=== PATIENT | female | born 1995 | race Caucasian/White ===

== ENCOUNTER 2017-07-28 21:35 | Emergency (ER) | payer SELFPAY ==
[2017-07-28 21:44] VITALS: BP 140/91; PULSE 103; TEMP 9802; BMI 32.3
--- NOTE | 2017-07-28 21:47 | PDOC ---
Rapid Medical Evaluation Chief Complaint: Sore Throat Time Seen by Provider: 07/28/17 21:42 Medical Evaluation: Allergies Allergy/AdvReac Type Severity Reaction Status Date / Time Penicillins Allergy headaches Verified 11/17/15 03:58 swelling sensation Pt presents with complaint of : recently on treatment for strep s/p azithromycin ,. c/o sore throat, muffled voice and difficulty breathing when asleep On brief exam: + cervical lymphadenopathy. b/l tonsil swollen. not kissing. I have ordered the following: rapid strep. Pt will go to the Emergency Dept for further workup 07/28/17 21:43
[2017-07-28] MEDS ORDERED: CLINDAMYCIN HCL 150 MG CAPSULE (FP) PO ONE (22:44)
[2017-07-28] MEDS ORDERED: DEXAMETHASONE SOD PHOSPHATE 10 MG/1 ML VIAL IM ONE ×2 (22:44→23:06)
[2017-07-28] MEDS ORDERED: CLINDAMYCIN HCL 150 MG CAPSULE (FP) ONE (22:53)
[2017-07-28] MEDS ORDERED: DEXAMETHASONE SOD PHOSPHATE 10 MG/1 ML VIAL ONE ×2 (22:53→23:09)
--- NOTE | 2017-07-28 22:56 | PDOC ---
History of Present Illness - General Chief Complaint: Sore Throat Stated Complaint: SORE THROAT Time Seen by Provider: 07/28/17 21:42 History Source: Patient - History of Present Illness Initial Comments: 07/28/17 22:46 22 year old female c/o sore throat s/p azithromycin for strep throat. symptoms not resolving with increased swelling to both tonsils. and muffled voice. Past History - Past Medical History Allergies/Adverse Reactions: Allergies Allergy/AdvReac Type Severity Reaction Status Date / Time Penicillins Allergy headaches Verified 11/17/15 03:58 swelling sensation Home Medications: Ambulatory Orders Metformin HCl [Glucophage] 500 mg PO BID 07/18/14 Clindamycin HCl [Cleocin HCl] 300 mg PO QID #28 capsule 11/17/15 Oxycodone HCl/Acetaminophen [Percocet 5/325 -] 1 - 2 tab PO Q6H PRN #20 tablet MDD 8 tabs 11/17/15 Clindamycin HCl [Cleocin HCl] 300 mg PO QID #40 capsule 07/28/17 Ibuprofen 800 mg PO QID PRN #20 tablet 07/28/17 COPD: No Hypercholesterolemia: Yes - Immunization History Td Vaccination: Yes TDAP Vaccination: Yes Immunization Up to Date: Yes - Suicide/Smoking/Psychosocial Hx Smoking Status: No Smoking History: Never smoked Have you smoked in the past 12 months: No Number of Cigarettes Smoked Daily: 0 Information on smoking cessation initiated: No Hx Alcohol Use: No Drug/Substance Use Hx: No Substance Use Type: None *Physical Exam - Vital Signs Last Vital Signs Temp Pulse Resp BP Pulse Ox 9802 F H 103 H 19 140/91 98 07/28/17 21:42 07/28/17 21:42 07/28/17 21:42 07/28/17 21:42 07/28/17 21:42 - Physical Exam General Appearance: Yes: Appropriately Dressed HEENT: positive: Other (tonsillar edema. No kissing tonsils. b/l tonsills swollen. ) Neck: positive: Lymphadenopathy (R), Lymphadenopathy (L) Respiratory/Chest: positive: Lungs Clear, Normal Breath Sounds Extremity: positive: Normal Capillary Refill, Normal Inspection, Normal Range of Motion Integumentary: positive: Normal Color, Dry, Warm Neurologic: positive: Fully Oriented, Alert, Normal Mood/Affect ED Treatment Course - ADDITIONAL ORDERS Additional order review: 07/28/17 22:00 Group A Strep Rapid Antigen - Final Throat *DC/Admit/Observation/Transfer Diagnosis at time of Disposition: Pharyngitis Qualifiers: Pharyngitis/tonsillitis etiology: other specified organisms Qualified Code(s): J02.8 - Acute pharyngitis due to other specified organisms - Prescriptions Prescriptions: Clindamycin HCl [Cleocin HCl] 300 mg PO QID #40 capsule Ibuprofen 800 mg PO QID PRN #20 tablet PRN Reason: Pain - Referrals Referrals: Patricio Jeffrey MD [Staff Physician] - - Patient Instructions Printed Discharge Instructions: DI for Pharyngitis/Tonsillopharyngitis -- Adult Additional Instructions: drink plenty of fluids. gargle with warm salty water. take ibuprofen for pain take clindamycin as prescribed. follow up with your doctor as soon as possible. - Post Discharge Activity Forms/Work/School Notes: Back to Work
--- NOTE | 2017-07-28 23:36 | PDOC ---
*Physical Exam - Vital Signs Last Vital Signs Temp Pulse Resp BP Pulse Ox 9802 F H 103 H 19 140/91 98 07/28/17 21:42 07/28/17 21:42 07/28/17 21:42 07/28/17 21:42 07/28/17 21:42 ED Treatment Course - ADDITIONAL ORDERS Additional order review: 07/28/17 22:00 Group A Strep Rapid Antigen - Final Throat - Medications Given in the ED: ED Medications Discontinued Medications Generic Name Dose Route Start Last Admin Trade Name Freq PRN Reason Stop Dose Admin Clindamycin HCl 450 mg 07/28/17 22:44 07/28/17 22:58 Cleocin - PO 07/28/17 22:45 450 mg ONCE ONE Administration Dexamethasone Sodium Phosphate 10 mg 07/28/17 22:44 07/28/17 22:58 Decadron Injection - IM 07/28/17 22:45 Not Given ONCE ONE Dexamethasone Sodium Phosphate 10 mg 07/28/17 23:06 07/28/17 23:13 Decadron Injection - IM 07/28/17 23:07 10 mg ONCE ONE Administration Medical Decision Making - Medical Decision Making 07/28/17 23:36 agree with care from WILBERT Middleton *DC/Admit/Observation/Transfer Diagnosis at time of Disposition: Pharyngitis Qualifiers: Pharyngitis/tonsillitis etiology: other specified organisms Qualified Code(s): J02.8 - Acute pharyngitis due to other specified organisms - Prescriptions Prescriptions: Clindamycin HCl [Cleocin HCl] 300 mg PO QID #40 capsule Ibuprofen 800 mg PO QID PRN #20 tablet PRN Reason: Pain - Referrals Referrals: Patricio Jeffrey MD [Staff Physician] - - Patient Instructions Printed Discharge Instructions: DI for Pharyngitis/Tonsillopharyngitis -- Adult Additional Instructions: drink plenty of fluids. gargle with warm salty water. take ibuprofen for pain take clindamycin as prescribed. follow up with your doctor as soon as possible. - Post Discharge Activity Forms/Work/School Notes: Back to Work
== END 2017-07-28 23:52 | disposition home or self-care (01) ==
LOC: JER 21:35
PROC: 3E023GC Introduction of Other Therapeutic Substance into Muscle, Percutaneous Approach (ICD-10-PCS; principal; 2017-07-28)
DX: J02.8 Acute pharyngitis due to other specified organisms (principal)
CPT/HCPCS: 87070; 87430; 99281-25

== ENCOUNTER 2021-02-21 02:22 | Emergency (ER) | payer OTHER ==
[2021-02-21 03:47] VITALS: BP 126/84; PULSE 88; TEMP 97.6; BMI 39.5
[2021-02-21 03:50] LABS: EPI CELLS 11 /uL (0-25.1); HYALINE CASTS 1 /uL (0-3.1); PH,URINE 8.5 (5.0-8.0); URINE APPEARANCE CLOUDY; URINE BACTERIA 309 /uL (0-1359); URINE BILIRUBIN NEGATIVE (NEGATIVE); URINE COLOR ORANGE; URINE GLUCOSE (UA) NEGATIVE (NEGATIVE); URINE KETONE NEGATIVE (NEGATIVE); URINE LEUK ESTERASE 1+ (NEGATIVE); URINE NITRITE NEGATIVE (NEGATIVE); URINE PROTEIN TRACE (NEGATIVE); URINE RBC 2089 /uL (0-23.9); URINE WBC 115 /uL (0-25.8)
[2021-02-21] MEDS ORDERED: ACETAMINOPHEN 500 MG TABLET (FP) PO ONE (04:38)
[2021-02-21] MEDS ORDERED: ACETAMINOPHEN 325 MG TABLET (FP) ONE (04:45)
== END 2021-02-21 06:33 | disposition home or self-care (01) ==
LOC: JER 02:22
DX: N39.0 Urinary tract infection, site not specified (principal)
CPT/HCPCS: 74176-TC; 81003; 84703; 87086; 99284-25